=== PATIENT | female | born 1970 | race Caucasian/White ===

== ENCOUNTER 2021-10-19 07:07 | Day surgery (SDC) | payer MEDICAID, SELFPAY ==
[~2021-10-19] VITALS: Ht 154.9 cm; Wt 96.2 kg
[2021-10-19] MEDS ORDERED: SIMETHICONE 40 MG/0.6 ML ML ONE (07:28)
[2021-10-19] MEDS ORDERED: MEPERIDINE 100 MG INJ. 100 MG/ML VIAL ONE (07:29)
[2021-10-19] MEDS ORDERED: MIDAZOLAM HCL 5 MG/5 ML VIAL ONE (07:29)
[2021-10-19 07:45] LABS: HCG,QUAL RESULT NEGATIVE (NEGATIVE)
[2021-10-19 15:21] VITALS: BP_SYST 161
== END 2021-10-19 10:15 | disposition home or self-care (01) ==
LOC: SDS 07:07 → SMU 07:08 → SDS 10:15
PROVIDERS: ATTEND Internal Medicine Gastroenterology
DX: R10.9 Unspecified abdominal pain (principal); K29.50 Unspecified chronic gastritis without bleeding; R14.0 Abdominal distension (gaseous); K44.9 Diaphragmatic hernia without obstruction or gangrene; J45.909 Unspecified asthma, uncomplicated; I10 Essential (primary) hypertension; Z79.899 Other long term (current) drug therapy; Z20.822 Contact with and (suspected) exposure to COVID-19
CPT/HCPCS: 36415 ×2; 43239; 84703; 87081; 87426; 88305; 88312; 88313; 99152; G0378; J2175; J2250